=== PATIENT | female | born 1945 | race Caucasian/White ===

== ENCOUNTER → 2017-12-03 | Outpatient (CLI) | payer MEDICARE, OTHER ==
[~2017-12-03] MED LIST: ALLO100 PO; AMLO5 PO; ASPI325 PO; ASPI81CH PO; ASPI81EC PO; ATOR10 PO; BIEST; BIOTIN-D1 GM PO; BUDE.25 PO; BUDESONIDE PO; BUME2 PO; CEPH500 PO; CETI10 PO; CETI5 PO; CILO100 PO; CLON2 PO; COLC.6 PO; CYCL10 PO; Cyclobenzaprine5 MG PO; DIALYVITE WITH1 EACH PO; DOCU100 PO; ERGO400 PO; ERGO50000 PO; FEXO180 PO; FOL2.2T PO; FURO40 PO; Fabb Tablet1 EACH PO; Fergon240 M1 PO; GABA300 PO; HYDACE5 PO; Hydrocodone-Ap1 EA23 PO; METO2.5 PO; METO5A PO; METPRE4DP PO; Midodrine HCl2.5 MG PO; Neurontin300 MG PO; ONDA4ODT; ONDA4ODT PO; OXYACE5T PO; OXYC10TA19 PO; OXYC1TAB11 PO; Omeprazole20 M1 PO; POTBIC25 PO; POTCHL10ER; POTCHL10ER PO; PRED20 PO; Percocet 5-3251 EACH PO; ROPI.25 PO; RXCYCL10 PO; RXHYDACE PO; SODBIC650 PO; SODIUM BICARB; SPIR25 PO; SPIR50 PO; VALS80 PO; Vitamin D2000 UNIT PO; ZINC15 PO
== END | disposition home or self-care (01) ==
LOC: PLD 13:28 → LAB SHORT 13:28
DX: D22.62 Melanocytic nevi of left upper limb, including shoulder (principal)
CPT/HCPCS: 88305

== ENCOUNTER 2017-12-06 12:43 | Emergency (ER) | payer MEDICARE, OTHER ==
[~2017-12-06] VITALS: Ht 170.2 cm; Wt 106.0 kg
[~2017-12-06 12:43] MED LIST changes: -ASPI325 PO; -BIOTIN-D1 GM PO; -BUDE.25 PO; -BUDESONIDE PO; -CILO100 PO; -CLON2 PO; -DIALYVITE WITH1 EACH PO; -DOCU100 PO; -Fergon240 M1 PO; -GABA300 PO; -METO5A PO; -Midodrine HCl2.5 MG PO; -Neurontin300 MG PO; -ONDA4ODT; -ONDA4ODT PO; -OXYC10TA19 PO; -OXYC1TAB11 PO; -Omeprazole20 M1 PO; -POTCHL10ER; -ROPI.25 PO; -Vitamin D2000 UNIT PO; -ZINC15 PO
[2017-12-06 13:24] LABS: BASOPHILS ABSOLUTE AUTO 0.03 K/mm3 (0.00-0.23); BASOPHILS PERCENT AUTO 0 % (0-2); EOSINOPHILS PERCENT AUTO 1 % (0-6); Hematocrit 34.3 % (33.0-51.0); Hemoglobin 10.7 g/dL (11.5-16.0); IMMATURE GRAN ABSOLUTE AUTO 0.04 K/mm3 (0.00-0.10); IMMATURE GRAN PERCENT AUTO 0 % (0-1); LYMPHOCYTES ABSOLUTE AUTO 2.66 K/mm3 (0.84-5.20); LYMPHOCYTES PERCENT AUTO 27 % (21-46); MONOCYTES ABSOLUTE AUTO 0.64 K/mm3 (0.16-1.47); MONOCYTES PERCENT AUTO 6 % (4-13); Mean Corpuscular HGB 32.9 pg (26.0-34.0); Mean Corpuscular HGB Conc 31.2 g/dL (31.5-36.5); Mean Corpuscular Volume 106 fL (80-100); Mean Platelet Volume 9.9 fL (9.1-12.4); NEUTROPHILS ABSOLUTE AUTO 6.54 K/mm3 (1.96-9.15); NEUTROPHILS PERCENT AUTO 65 % (41-73); Platelet Count 266 K/mm3 (150-400); RDW Standard Deviation 62.4 fL (35.1-46.3); Red Blood Cell Count 3.25 M/mm3 (3.80-5.20); White Blood Cell Count 10.01 K/mm3 (4.00-11.30)
[2017-12-06 13:56] LABS: Albumin, Blood 3.1 g/dL (3.4-5.0); Albumin/Globulin Ratio 0.8 (0.8-1.8); Bilirubin, Total 0.4 mg/dL (0.1-1.0); Bun/Creatinine Ratio 26.8 (12.0-20.0); Calcium, Blood 9.2 mg/dL (8.5-10.1); Creatinine, Blood 1.53 mg/dL (0.40-1.00); Globulin, Blood 3.8 g/dL (2.2-4.0); Potassium, Blood 3.5 mmol/L (3.5-5.5); Total Protein, Blood 6.9 g/dL (6.4-8.2); Troponin I 0.015 ng/mL (0.000-0.040)
[2017-12-06] MEDS ORDERED: BUDE.25 PO (13:58)
[2017-12-06] MEDS ORDERED: POTCHL10ER (13:58)
[2017-12-06] MEDS ORDERED: CILO100 PO (13:58)
[2017-12-06] MEDS ORDERED: Fergon240 M1 PO (13:58)
[2017-12-06] MEDS ORDERED: ONDA4ODT (13:59)
[2017-12-06] MEDS ORDERED: CLON2 PO (13:59)
[2017-12-06] MEDS ORDERED: Omeprazole20 M1 PO (13:59)
[2017-12-06] MEDS ORDERED: GABA300 PO (13:59)
[2017-12-06] MEDS ORDERED: ROPI.25 PO (13:59)
[2018-05-14] MEDS ORDERED: BIOTIN-D1 GM PO (07:21)
[2018-05-14] MEDS ORDERED: METO5A PO (07:22)
[2018-05-14] MEDS ORDERED: BUME2 PO (07:23)
[2018-05-14] MEDS ORDERED: OXYC1TAB11 PO (07:23)
[2018-05-14] MEDS ORDERED: Midodrine HCl2.5 MG PO (07:24)
[2018-05-14] MEDS ORDERED: ZINC15 PO (07:24)
[2018-05-14] MEDS ORDERED: Vitamin D2000 UNIT PO (07:24)
[2018-05-14] MEDS ORDERED: DIALYVITE WITH1 EACH PO (07:25)
[2018-05-14] MEDS ORDERED: ONDA4ODT PO (07:25)
== END 2017-12-06 14:55 | disposition home or self-care (01) ==
LOC: ER 12:43
PROVIDERS: Internal Medicine
DX: R06.00 Dyspnea, unspecified (principal); I50.9 Heart failure, unspecified; F17.200 Nicotine dependence, unspecified, uncomplicated; Z88.1 Allergy status to other antibiotic agents; Z79.899 Other long term (current) drug therapy; Z79.82 Long term (current) use of aspirin
CPT/HCPCS: 36415; 71046; 80053; 83880; 84484; 85025; 93005; 93010; 99284

== ENCOUNTER → 2017-12-10 | Outpatient (CLI) | payer MEDICARE, OTHER ==
[~2017-12-10] MED LIST changes: +ASPI325 PO; +BIOTIN-D1 GM PO; +BUDE.25 PO; +BUDESONIDE PO; +CILO100 PO; +CLON2 PO; +DIALYVITE WITH1 EACH PO; +DOCU100 PO; +Fergon240 M1 PO; +GABA300 PO; +METO5A PO; +Midodrine HCl2.5 MG PO; +Neurontin300 MG PO; +ONDA4ODT; +ONDA4ODT PO; +OXYC10TA19 PO; +OXYC1TAB11 PO; +Omeprazole20 M1 PO; +POTCHL10ER; +ROPI.25 PO; +Vitamin D2000 UNIT PO; +ZINC15 PO
== END | disposition home or self-care (01) ==
LOC: PLD 10:38 → LAB SHORT 10:38
DX: D48.5 Neoplasm of uncertain behavior of skin (principal)
CPT/HCPCS: 88305

== ENCOUNTER → 2018-01-06 | Outpatient (CLI) | payer MEDICARE, OTHER ==
[~2018-01-06] MED LIST changes: -ASPI325 PO; -ASPI81CH PO; -BIOTIN-D1 GM PO; +BUDE.25; -BUDE.25 PO; -BUDESONIDE PO; -CETI5 PO; +CILO100; -CILO100 PO; +CLON2; -CLON2 PO; -DIALYVITE WITH1 EACH PO; -DOCU100 PO; -Fabb Tablet1 EACH PO; +Fergon240 M1; -Fergon240 M1 PO; +GABA300; -GABA300 PO; -METO5A PO; -Midodrine HCl2.5 MG PO; -Neurontin300 MG PO; -ONDA4ODT PO; -OXYC10TA19 PO; -OXYC1TAB11 PO; +Omeprazole20 M1; -Omeprazole20 M1 PO; +ROPI.25; -ROPI.25 PO; -Vitamin D2000 UNIT PO; -ZINC15 PO; +[UNRECOGNIZED DRUG - OTHER] PO
[2018-01-06 18:27] LABS: Albumin, Blood 3.4 g/dL (3.4-5.0); Anion Gap 7 mmol/L (6-16); Blood Urea Nitrogen 69 mg/dL (8-24); Bun/Creatinine Ratio 23.1 (12.0-20.0); CO2, Blood 37 mmol/L (21-32); Calcium, Blood 9.4 mg/dL (8.5-10.1); Chloride, Blood 83 mmol/L (98-108); Creatinine, Blood 2.99 mg/dL (0.40-1.00); Glomerular Filtration Rate 16 (60-); Glucose, Blood 111 mg/dL (70-99); Phosphorus, Blood 4.2 mg/dL (2.5-4.9); Potassium, Blood 2.6 mmol/L (3.5-5.5); Sodium, Blood 127 mmol/L (136-145)
== END | disposition home or self-care (01) ==
LOC: LAB 16:00 → LAB SHORT 16:00
PROVIDERS: Internal Medicine Nephrology
DX: N18.3 Chronic kidney disease, stage 3 (moderate) (principal); D63.1 Anemia in chronic kidney disease
CPT/HCPCS: 80069; 85018

== ENCOUNTER 2018-05-22 11:35 | Inpatient (IN) | payer MEDICARE, OTHER ==
[~2018-05-22] VITALS: Ht 170.2 cm; Wt 89.8 kg
[~2018-05-22 11:35] MED LIST changes: +ASPI81CH PO; +BIOTIN-D1 GM PO; -BUDE.25; +BUDE.25 PO; +CETI5 PO; -CILO100; +CILO100 PO; -CLON2; +CLON2 PO; +DIALYVITE WITH1 EACH PO; +Fabb Tablet1 EACH PO; -Fergon240 M1; +Fergon240 M1 PO; -GABA300; +GABA300 PO; +METO5A PO; +Midodrine HCl2.5 MG PO; +ONDA4ODT PO; +OXYC1TAB11 PO; -Omeprazole20 M1; +Omeprazole20 M1 PO; -ROPI.25; +ROPI.25 PO; +Vitamin D2000 UNIT PO; +ZINC15 PO; -[UNRECOGNIZED DRUG - OTHER] PO
[2018-05-27] MEDS ORDERED: BUDESONIDE PO (12:50)
[2018-05-27] MEDS ORDERED: Neurontin300 MG PO (12:55)
[2018-05-28 08:12] LABS: BASOPHILS ABSOLUTE AUTO 0.01 K/mm3 (0.00-0.23); BASOPHILS PERCENT AUTO 0 % (0-2); EOSINOPHILS PERCENT AUTO 0 % (0-6); Hematocrit 27.4 % (33.0-51.0); Hemoglobin 8.9 g/dL (11.5-16.0); IMMATURE GRAN ABSOLUTE AUTO 0.03 K/mm3 (0.00-0.10); IMMATURE GRAN PERCENT AUTO 0 % (0-1); LYMPHOCYTES PERCENT AUTO 18 % (21-46); MONOCYTES ABSOLUTE AUTO 0.28 K/mm3 (0.16-1.47); MONOCYTES PERCENT AUTO 3 % (4-13); Mean Corpuscular HGB 31.6 pg (26.0-34.0); Mean Corpuscular HGB Conc 32.5 g/dL (31.5-36.5); Mean Corpuscular Volume 97 fL (80-100); NEUTROPHILS ABSOLUTE AUTO 6.68 K/mm3 (1.96-9.15); NEUTROPHILS PERCENT AUTO 79 % (41-73); Platelet Count 336 K/mm3 (150-400); RDW Coefficient Variation 14.9 % (11.7-14.2); RDW Standard Deviation 53.1 fL (35.1-46.3); Red Blood Cell Count 2.82 M/mm3 (3.80-5.20)
[2018-05-28 08:32] LABS: Albumin, Blood 2.8 g/dL (3.4-5.0); Anion Gap 12 mmol/L (6-16); Blood Urea Nitrogen 29 mg/dL (8-24); Bun/Creatinine Ratio 9.1 (12.0-20.0); CO2, Blood 25 mmol/L (21-32); Calcium, Blood 9.1 mg/dL (8.5-10.1); Chloride, Blood 97 mmol/L (98-108); Creatinine, Blood 3.17 mg/dL (0.40-1.00); Glomerular Filtration Rate 15 (60-); Glucose, Blood 130 mg/dL (70-99); Magnesium, Blood 1.7 mg/dL (1.6-2.4); Phosphorus, Blood 3.8 mg/dL (2.5-4.9); Potassium, Blood 4.1 mmol/L (3.5-5.5); Sodium, Blood 134 mmol/L (136-145)
[2018-05-29] MEDS ORDERED: ASPI325 PO (07:28)
[2018-05-29 07:40] LABS: Hematocrit 25.9 % (33.0-51.0); Hemoglobin 8.6 g/dL (11.5-16.0)
[2018-05-29 07:49] LABS: Albumin, Blood 2.7 g/dL (3.4-5.0); Anion Gap 9 mmol/L (6-16); Blood Urea Nitrogen 33 mg/dL (8-24); Bun/Creatinine Ratio 11.3 (12.0-20.0); CO2, Blood 27 mmol/L (21-32); Calcium, Blood 8.6 mg/dL (8.5-10.1); Chloride, Blood 92 mmol/L (98-108); Creatinine, Blood 2.91 mg/dL (0.40-1.00); Glomerular Filtration Rate 17 (60-); Glucose, Blood 82 mg/dL (70-99); Magnesium, Blood 1.6 mg/dL (1.6-2.4); Phosphorus, Blood 2.7 mg/dL (2.5-4.9); Potassium, Blood 3.6 mmol/L (3.5-5.5); Sodium, Blood 128 mmol/L (136-145)
[2018-05-29] MEDS ORDERED: OXYC10TA19 PO (10:56)
[2018-05-29] MEDS ORDERED: DOCU100 PO (10:57)
== END 2018-05-29 15:42 | disposition home or self-care (01) | DRG 469 ==
LOC: SURS 05-27 11:42 → PRE IP 05-27 13:30 → SURS 05-27 18:42
PROVIDERS: Internal Medicine Nephrology; Orthopaedic Surgery
PROC: 8E0YXBZ Computer Assisted Procedure of Lower Extremity (ICD-10-PCS; 2018-05-27)
PROC: 0SR90JA Replacement of Right Hip Joint with Synthetic Substitute, Uncemented, Open Approach (ICD-10-PCS; principal; 2018-05-27 13:30)
DX: M16.11 Unilateral primary osteoarthritis, right hip (principal); N18.6 End stage renal disease; M87.9 Osteonecrosis, unspecified; I13.2 Hypertensive heart and chronic kidney disease with heart failure and with stage 5 chronic kidney disease, or end stage renal disease; E87.1 Hypo-osmolality and hyponatremia; D63.1 Anemia in chronic kidney disease; G47.33 Obstructive sleep apnea (adult) (pediatric); I50.9 Heart failure, unspecified; M10.9 Gout, unspecified; E78.00 Pure hypercholesterolemia, unspecified; Z99.2 Dependence on renal dialysis; Z88.6 Allergy status to analgesic agent; Z88.4 Allergy status to anesthetic agent; Z88.1 Allergy status to other antibiotic agents; Z79.82 Long term (current) use of aspirin; Z79.899 Other long term (current) drug therapy; Z87.891 Personal history of nicotine dependence
CPT/HCPCS: 36415; 72170; 80048; 80069; 83735; 84132; 85014; 85018; 85025; 86850; 86900; 86901; 94762; 97110; 97116; 97161; 97530; C1713; C1776; G8978; G8979; G8980; J0171; J0690; J0735; J1100; J2250; J2370; J2405; J2710; J2765; J2795; J3010; J7030

== ENCOUNTER 2018-12-10 11:04 | Emergency (ER) | payer MEDICARE, OTHER ==
[~2018-12-10] VITALS: Ht 167.6 cm; Wt 97.5 kg
[~2018-12-10 11:04] MED LIST changes: +ASPI325 PO; +BUDESONIDE PO; +DOCU100 PO; +Neurontin300 MG PO; +OXYC10TA19 PO
[2018-12-10 11:55] LABS: BASOPHILS ABSOLUTE AUTO 0.04 K/mm3 (0.00-0.23); BASOPHILS PERCENT AUTO 0 % (0-2); EOSINOPHILS ABSOLUTE AUTO 0.12 K/mm3 (0.00-0.68); EOSINOPHILS PERCENT AUTO 1 % (0-6); Hematocrit 36.6 % (33.0-51.0); Hemoglobin 11.8 g/dL (11.5-16.0); IMMATURE GRAN ABSOLUTE AUTO 0.04 K/mm3 (0.00-0.10); IMMATURE GRAN PERCENT AUTO 0 % (0-1); LYMPHOCYTES ABSOLUTE AUTO 2.49 K/mm3 (0.84-5.20); LYMPHOCYTES PERCENT AUTO 21 % (21-46); MONOCYTES ABSOLUTE AUTO 0.51 K/mm3 (0.16-1.47); MONOCYTES PERCENT AUTO 4 % (4-13); Mean Corpuscular HGB 31.9 pg (26.0-34.0); Mean Corpuscular HGB Conc 32.2 g/dL (31.5-36.5); Mean Corpuscular Volume 99 fL (80-100); Mean Platelet Volume 10.1 fL (9.1-12.4); NEUTROPHILS ABSOLUTE AUTO 8.83 K/mm3 (1.96-9.15); NEUTROPHILS PERCENT AUTO 74 % (41-73); Platelet Count 263 K/mm3 (150-400); RDW Standard Deviation 50.4 fL (35.1-46.3); White Blood Cell Count 12.03 K/mm3 (4.00-11.30)
[2018-12-10 12:05] LABS: Source, Urine Clean Catch
[2018-12-10 12:07] LABS: Bilirubin, Urine Neg (Neg); Blood, Urine 1+ (Neg); Glucose Qualitative, Urine Neg (Neg); Ketones, Urine Neg (Neg); Leukocyte Esterase, Urine 3+ (Neg); Nitrite, Urine Pos (Neg); Protein, Urine 3+ (Neg); Specific Gravity, Urine 1.015 (1.003-1.022); Urobilinogen, Urine NORM (Normal)
[2018-12-10 12:25] LABS: Appearance, Urine Hazy (Clear); Bacteria Mod /hpf; Color, Urine Yellow (P-Yellow); Red Blood Cells, Urine 0-2 /hpf (0-2); Squamous Epithelial Cells Few /hpf (Few); White Blood Cells, Urine 25-50 /hpf (0-5)
[2018-12-10 12:26] LABS: Albumin, Blood 3.3 g/dL (3.4-5.0); Albumin/Globulin Ratio 0.8 (0.8-1.8); Bilirubin, Total 0.4 mg/dL (0.1-1.0); Bun/Creatinine Ratio 26.5 (12.0-20.0); Calcium, Blood 9.8 mg/dL (8.5-10.1); Creatinine, Blood 1.66 mg/dL (0.40-1.00); Potassium, Blood 4.1 mmol/L (3.5-5.5); Total Protein, Blood 7.3 g/dL (6.4-8.2); Troponin I 0.037 ng/mL (0.000-0.040)
[2018-12-10] MEDS ORDERED: ASPI81CH PO (14:01)
[2018-12-10] MEDS ORDERED: CLON.1 PO (14:04)
[2018-12-10] MEDS ORDERED: IRBE75 PO (14:04)
[2018-12-10] MEDS ORDERED: ONDA4ODT MM (16:56)
[2018-12-10] MEDS ORDERED: CEFD300 PO (16:56)
== END 2018-12-10 17:05 | disposition home or self-care (01) ==
LOC: ER 11:04
PROVIDERS: Physician Assistant
DX: N12 Tubulo-interstitial nephritis, not specified as acute or chronic (principal); I73.9 Peripheral vascular disease, unspecified; Z88.1 Allergy status to other antibiotic agents; Z88.6 Allergy status to analgesic agent; Z79.82 Long term (current) use of aspirin; Z79.899 Other long term (current) drug therapy
CPT/HCPCS: 36415; 80053; 81001; 83605; 83880; 84484; 85025; 87077; 87086; 87186; 93005; 93010; 96365; 99284-25; J0696; J7030; J7120

== ENCOUNTER 2019-03-12 14:04 | Day surgery (SDC) | payer MEDICARE, OTHER ==
[~2019-03-12] VITALS: Ht 165.1 cm; Wt 109.5 kg
[~2019-03-12 14:04] MED LIST changes: +CEFD300 PO; +CLON.1 PO; +IRBE75 PO; +ONDA4ODT MM
--- NOTE | 2019-03-12 16:05 | NUR ---
03/12/19 1605 Lyla Ortiz 7CC OF 2% XYLOCAINE 1:200,000 MIXED BY RN USED FOR INJECTION
== END 2019-03-12 17:35 | disposition home or self-care (01) ==
LOC: ORSCSDS 14:04
PROVIDERS: Ophthalmology
PROC: 080NXZZ Alteration of Right Upper Eyelid, External Approach (ICD-10-PCS; principal; 2019-03-12 16:00)
PROC: 080PXZZ Alteration of Left Upper Eyelid, External Approach (ICD-10-PCS; principal; 2019-03-12 16:00)
DX: H02.834 Dermatochalasis of left upper eyelid (principal); H02.831 Dermatochalasis of right upper eyelid; I12.9 Hypertensive chronic kidney disease with stage 1 through stage 4 chronic kidney disease, or unspecified chronic kidney disease; N18.9 Chronic kidney disease, unspecified; I50.9 Heart failure, unspecified; G47.33 Obstructive sleep apnea (adult) (pediatric); F17.210 Nicotine dependence, cigarettes, uncomplicated; K21.9 Gastro-esophageal reflux disease without esophagitis; Z79.899 Other long term (current) drug therapy; Z79.82 Long term (current) use of aspirin; E66.01 Morbid (severe) obesity due to excess calories; Z68.39 Body mass index [BMI] 39.0-39.9, adult
CPT/HCPCS: J0171; J2704; J7030; J7120

== ENCOUNTER → 2019-04-29 | Outpatient (CLI) | payer MEDICARE, OTHER ==
[2019-04-29 17:54] LABS: Bilirubin, Urine Neg (Neg); Blood, Urine 1+ (Neg); Glucose Qualitative, Urine Neg (Neg); Ketones, Urine Neg (Neg); Leukocyte Esterase, Urine 3+ (Neg); Nitrite, Urine Neg (Neg); Protein, Urine 2+ (Neg); Urobilinogen, Urine NORM (Normal)
[2019-04-29 18:01] LABS: Appearance, Urine Hazy (Clear); Color, Urine Yellow (P-Yellow)
[2019-04-29 18:03] LABS: White Blood Cells, Urine TNTC /hpf (0-5)
[2019-04-29 18:04] LABS: Bacteria Mod /hpf; Squamous Epithelial Cells Few /hpf (Few)
== END | disposition home or self-care (01) ==
LOC: LAB 17:45 → LAB SHORT 17:45
PROVIDERS: Registered Nurse
DX: N39.0 Urinary tract infection, site not specified (principal); R82.998 Other abnormal findings in urine
CPT/HCPCS: 81001; 87077; 87086; 87186

== ENCOUNTER → 2019-07-09 | Outpatient (CLI) | payer MEDICARE, OTHER ==
[2019-07-09 12:44] LABS: Albumin, Blood 2.9 g/dL (3.4-5.0); Anion Gap 9 mmol/L (6-16); Blood Urea Nitrogen 33 mg/dL (8-24); Bun/Creatinine Ratio 18.2 (12.0-20.0); CO2, Blood 23 mmol/L (21-32); Chloride, Blood 96 mmol/L (98-108); Creatinine, Blood 1.81 mg/dL (0.40-1.00); Glomerular Filtration Rate 29 (60-); Glucose, Blood 92 mg/dL (70-99); Phosphorus, Blood 3.6 mg/dL (2.5-4.9); Potassium, Blood 4.3 mmol/L (3.5-5.5); Sodium, Blood 128 mmol/L (136-145)
== END | disposition home or self-care (01) ==
LOC: LAB 11:50 → LAB SHORT 11:50 → EDSTATUS 13:53
PROVIDERS: Internal Medicine Nephrology
DX: N18.3 Chronic kidney disease, stage 3 (moderate) (principal); D63.1 Anemia in chronic kidney disease
CPT/HCPCS: 80069; 85018

== ENCOUNTER 2020-10-21 10:27 | Inpatient (IN) | payer MEDICARE, OTHER ==
[~2020-10-21] VITALS: Ht 167.6 cm; Wt 99.5 kg
[~2020-10-21 10:27] MED LIST changes: +ABAT250V; +B-COMPLEX WITH1 EACH PO; +CALCIUM 600 +1 EA11 PO; -CILO100 PO; -CLON.1 PO; +Folic Acid-Vit1 EACH PO; +OMEP20ER PO; -Omeprazole20 M1 PO; +POTA10T PO; -ROPI.25 PO; -SPIR50 PO; +Ventolin/Prove6.7 GM INH
[2020-10-21 11:09] LABS: International Normalized Ratio 0.91; Prothrombin Time Results 9.8 Sec (9.7-11.5)
[2020-10-21 11:16] LABS: Alanine Aminotransfer (ALT/SGP 29 U/L (12-78); Albumin, Blood 3.4 g/dL (3.4-5.0); Albumin/Globulin Ratio 0.8 (0.8-1.8); Alk Phos 123 U/L (50-136); Anion Gap 8 mmol/L (6-16); Aspartate Aminotrans (AST/SGOT 17 U/L (12-37); Bilirubin, Total 0.3 mg/dL (0.1-1.0); Blood Urea Nitrogen 25 mg/dL (8-24); CO2, Blood 32 mmol/L (21-32); Calcium, Blood 8.9 mg/dL (8.5-10.1); Chloride, Blood 98 mmol/L (98-108); Creatinine, Blood 1.67 mg/dL (0.40-1.00); Globulin, Blood 4.1 g/dL (2.2-4.0); Glomerular Filtration Rate 32 (60-); Glucose, Blood 85 mg/dL (70-99); Potassium, Blood 3.5 mmol/L (3.5-5.5); Sodium, Blood 138 mmol/L (136-145); Total Protein, Blood 7.5 g/dL (6.4-8.2); Troponin I <0.015 ng/mL (0.000-0.040)
[2020-10-21 11:18] LABS: BASOPHILS ABSOLUTE AUTO 0.04 K/mm3 (0.00-0.23); BASOPHILS PERCENT AUTO 0 % (0-2); EOSINOPHILS ABSOLUTE AUTO 0.05 K/mm3 (0.00-0.68); EOSINOPHILS PERCENT AUTO 0 % (0-6); Hematocrit 37.9 % (33.0-51.0); Hemoglobin 12.4 g/dL (11.5-16.0); IMMATURE GRAN ABSOLUTE AUTO 0.19 K/mm3 (0.00-0.10); IMMATURE GRAN PERCENT AUTO 1 % (0-1); LYMPHOCYTES PERCENT AUTO 23 % (21-46); MONOCYTES ABSOLUTE AUTO 0.84 K/mm3 (0.16-1.47); MONOCYTES PERCENT AUTO 5 % (4-13); Mean Corpuscular HGB 31.9 pg (26.0-34.0); Mean Corpuscular HGB Conc 32.7 g/dL (31.5-36.5); Mean Corpuscular Volume 97 fL (80-100); Mean Platelet Volume 10.1 fL (9.1-12.4); NEUTROPHILS ABSOLUTE AUTO 11.23 K/mm3 (1.96-9.15); NEUTROPHILS PERCENT AUTO 70 % (41-73); Platelet Count 361 K/mm3 (150-400); RDW Coefficient Variation 14.3 % (11.7-14.2); RDW Standard Deviation 49.5 fL (35.1-46.3); Red Blood Cell Count 3.89 M/mm3 (3.80-5.20); White Blood Cell Count 15.95 K/mm3 (4.00-11.30)
[2020-10-21] MEDS ORDERED: CILO100 PO (12:39)
[2020-10-21] MEDS ORDERED: BUPR150ER PO (12:39)
[2020-10-21] MEDS ORDERED: ATOR10 PO (12:40)
[2020-10-21] MEDS ORDERED: CLON.5 PO (12:41)
[2020-10-21] MEDS ORDERED: SPIR25 PO (12:41)
[2020-10-21] MEDS ORDERED: ROPI.25 PO (12:42)
[2020-10-21] MEDS ORDERED: ALLO100 PO (12:42)
[2020-10-21] MEDS ORDERED: MIDO5 PO (12:43)
[2020-10-21] MEDS ORDERED: PANTOPRAZOLE SO40 M2 PO (12:44)
[2020-10-21] MEDS ORDERED: Aspir 8181 MG PO (12:59)
[2020-10-21] MEDS ORDERED: CLON.1 PO (13:21)
[2020-10-21] MEDS ORDERED: Isosorbide Mono60 MG PO (13:22)
[2020-10-21] MEDS ORDERED: LOSA50 PO (13:23)
[2020-10-21] MEDS ORDERED: VITAMIN D325 MC3 PO (13:24)
[2020-10-21] MEDS ORDERED: ATEN25 PO (13:24)
[2020-10-21] MEDS ORDERED: PROMETHAZINE12.5 M2 PO (13:27)
[2020-10-21] MEDS ORDERED: BUME2 PO (13:31)
[2020-10-21] MEDS ORDERED: BUDESONIDE EC3 M1 PO (13:32)
[2020-10-21] MEDS ORDERED: HYDHCL25 PO (13:35)
--- NOTE | 2020-10-21 15:27 | NUR ---
Echocardiogram completed.
--- NOTE | 2020-10-21 18:45 | NUR ---
SHIFT SUMMARY/ADMIT NOTE THIS NURSE NOTIFIED OF NEW ADMIT TO ROOM AT 1325 AT WHICH POINT, ROOM WAS STILL BEING CLEANED. ROOM CLEAN AT 1411. REPORT RECEIVED FROM RADHA [id number]. PT ARRIVED TO ROOM VIA GURNEY AT 1535. PT AXO, PLEASANT AND COOPERATIVE WITH CARE. NURSE COMPLETED ADMISSION HISTORY AND THEN NOTED MEDICATIONS DUE PER EMAR. 1300 DOSE OF METOPROLOL, "FIRST DOSE NOW" STILL TO BE GIVEN. THIS NURSE CALLED DR SALES WHO CONFIRMED THAT IT WAS OKAY TO GIVE THIS DOSE GIVEN HOW LATE IT WOULD BE. SEE MAR. VS MEASURED PRIOR TO GIVING MEDICATION. WILLI MARIANO CALLED THIS NURSE TO INQUIRE WHY THE DOSE HADNT BEEN GIVEN WHICH SHOULD HAVE BEEN GIVEN IN THE ER. THIS NURSE EXPLAINED THE ABOVE STATEMENT TO WHICH WILLI MARIANO STATED TO PROCEED AND GIVE THE MED. PT RUNNING SINUS TACH AT 108 PER DESKTOP ADMINISTRATOR. PT REFUSED BUMEX PER EMAR STATING THAT SHE "DIDNT NEED IT, HAD DIALYSIS THIS SHIFT." BED IN LOW POSITION, CALL LIGHT WITHIN REACH.
--- NOTE | 2020-10-21 19:05 | NUR ---
ASSUMED CARE RECEIVED REPORT FROM SANDRA FERRO. PT RESTING IN CHAIR, NO ACUTE DISTRESS NOTED AT THIS TIME. DENIES NEEDS. CALL LIGHT, POSSESSIONS IN REACH, CONTINUE TO MONITOR.
--- NOTE | 2020-10-21 23:25 | NUR ---
SPOKE TO WILLI JACOBS REGARDING PT'S HOME DOSE OF ATORVASTATIN. NO CHANGES MADE AT THIS TIME. CONTINUE TO MONITOR.
--- NOTE | 2020-10-22 05:54 | NUR ---
SHIFT SUMMARY PT ASLEEP, NO ACUTE DISTRESS OR NEEDS ASSESSED. VS REVIEWED, WNL. PT HAS BEEN RUNNING SINUS TACH, 90'S-100'S PER PCU LINING PRINTER. NO C/O DIZZINESS, CP. WORE CPAP T/O NIGHT. CALL LIGHT, POSSESSIONS IN REACH, BED IN LOW POSITION, SIDERAILS UP X3. CONTINUE TO MONITOR, REPORT OFF TO DAY RN.
[2020-10-22 05:59] LABS: Bun/Creatinine Ratio 15.9 (12.0-20.0); Calcium, Blood 9.7 mg/dL (8.5-10.1); Creatinine, Blood 2.51 mg/dL (0.40-1.00); Magnesium, Blood 2.2 mg/dL (1.6-2.4); Potassium, Blood 3.8 mmol/L (3.5-5.5)
--- NOTE | 2020-10-22 19:05 | NUR ---
ASSUMED CARE RECEIVED REPORT FROM SANDRA PATTERSON. PT UP IN CHAIR, NO ACUTE DISTRESS. DENIES NEEDS AT THIS TIME. DISCUSSED PLAN OF CARE R/T INCREASE IN METOPROLOL DOSE, PT INDICATED UNDERSTANDING. CALL LIGHT, POSSESSIONS IN REACH, BED IN LOW POSITION. CONTINUE TO MONITOR.
--- NOTE | 2020-10-23 04:06 | NUR ---
SHIFT SUMMARY PT ASLEEP, IN NO ACUTE DISTRESS. NO ACUTE CHANGES IN CONDITION T/O NIGHT. RECEIVED 75MG METOPROLOL ORDERED, HR TRENDING IN THE MID 90'S PER TOOL MACHINE SETUP OPERATOR. NO CARDIAC EVENTS REPORTED. NO EPISODES OF SYNCOPE OR C/O DIZZINESS. PROVIDED PT WITH TEACHING HANDOUTS R/T DISEASE PROCESS AND MEDICATIONS. NO ACUTE NEEDS ASSESSED AT THIS TIME, CPAP IN PLACE, RESPS E/U. PT REFUSING CONTINUOS PULSE OX. CALL LIGHT AND POSSESSIONS IN REACH, CONTINUE TO MONITOR UNTIL REPORT GIVEN TO DAY RN.
[2020-10-23] MEDS ORDERED: ELIQUIS5 MG PO (10:32)
[2020-10-23] MEDS ORDERED: METO100 PO (10:32)
--- NOTE | 2020-10-23 11:10 | NUR ---
DISCHARGED HOME. ALL QUESTIONS ANSWERED. VERBALIZED UNDERSTANDING OF DISCHARGE SUMMARY AND INSTRUCTIONS. ALL BELONGINGS IN PATIENT POSSESSION.
== END 2020-10-23 11:13 | disposition home or self-care (01) | DRG 308 ==
LOC: ER 10:27 → MEDS 10:28
PROVIDERS: Emergency Medicine; Nurse Practitioner Acute Care; ADMIT Internal Medicine
PROC: 5A09357 Assistance with Respiratory Ventilation, Less than 24 Consecutive Hours, Continuous Positive Airway Pressure (ICD-10-PCS; principal; 2020-10-21)
DX: I48.91 Unspecified atrial fibrillation (principal); N18.6 End stage renal disease; I13.2 Hypertensive heart and chronic kidney disease with heart failure and with stage 5 chronic kidney disease, or end stage renal disease; I50.32 Chronic diastolic (congestive) heart failure; M54.9 Dorsalgia, unspecified; G89.29 Other chronic pain; G47.33 Obstructive sleep apnea (adult) (pediatric); F32.9 Major depressive disorder, single episode, unspecified; F41.9 Anxiety disorder, unspecified; I73.9 Peripheral vascular disease, unspecified; R73.03 Prediabetes; E78.5 Hyperlipidemia, unspecified; M10.9 Gout, unspecified; E66.01 Morbid (severe) obesity due to excess calories; D72.829 Elevated white blood cell count, unspecified; Z99.2 Dependence on renal dialysis; Z87.891 Personal history of nicotine dependence; Z68.35 Body mass index [BMI] 35.0-35.9, adult; Z88.1 Allergy status to other antibiotic agents; Z88.8 Allergy status to other drugs, medicaments and biological substances; Z79.899 Other long term (current) drug therapy; Z79.891 Long term (current) use of opiate analgesic
CPT/HCPCS: 36415; 71045; 80048; 80053; 83735; 84100; 84443; 84484; 85025; 85610; 93005; 93010; 93306; 94762; 96374; 99285-25; A9270; G0378

== ENCOUNTER 2022-06-01 10:40 | Emergency (ER) | payer MEDICARE, OTHER ==
[~2022-06-01] VITALS: Ht 167.6 cm; Wt 90.3 kg
[~2022-06-01 10:40] MED LIST changes: +ATEN25 PO; +Aspir 8181 MG PO; +BUDESONIDE EC3 M1 PO; +BUPR150ER PO; +CILO100 PO; +CLON.1 PO; +CLON.5 PO; +ELIQUIS5 MG PO; +HYDHCL25 PO; +Isosorbide Mono60 MG PO; +LOSA50 PO; +METO100 PO; +MIDO5 PO; +PANTOPRAZOLE SO40 M2 PO; +PROMETHAZINE12.5 M2 PO; +ROPI.25 PO; +VITAMIN D325 MC3 PO
[2022-06-01] MEDS ORDERED: Amoxicillin500 MG PO (11:38)
[2022-06-01] MEDS ORDERED: METO25ER PO (11:39)
[2022-06-01] MEDS ORDERED: ONDA4 PO (11:40)
[2022-06-01] MEDS ORDERED: OXYC5 PO ×2 (11:43→16:14)
[2022-06-01] MEDS ORDERED: SENNA LAXATIVE8.6 MG PO (11:44)
[2022-06-01] MEDS ORDERED: CLON.5 PO (11:47)
[2022-06-01] MEDS ORDERED: TEMA30 PO (11:48)
[2022-06-01 13:20] LABS: Influenza A, PCR NEGATIVE (NEGATIVE); Influenza B, PCR NEGATIVE (NEGATIVE); Resp Syncytial Virus, PCR NEGATIVE (NEGATIVE); SARS-Cov-2 (COVID-19) PCR, MMC NEGATIVE (NEGATIVE)
[2022-06-01 14:50] LABS: BASOPHILS ABSOLUTE AUTO 0.05 K/mm3 (0.00-0.23); BASOPHILS PERCENT AUTO 0 % (0-2); EOSINOPHILS ABSOLUTE AUTO 0.08 K/mm3 (0.00-0.68); EOSINOPHILS PERCENT AUTO 1 % (0-6); Hematocrit 24.7 % (33.0-51.0); IMMATURE GRAN ABSOLUTE AUTO 0.11 K/mm3 (0.00-0.10); IMMATURE GRAN PERCENT AUTO 1 % (0-1); LYMPHOCYTES ABSOLUTE AUTO 1.92 K/mm3 (0.84-5.20); LYMPHOCYTES PERCENT AUTO 15 % (21-46); MONOCYTES ABSOLUTE AUTO 0.89 K/mm3 (0.16-1.47); MONOCYTES PERCENT AUTO 7 % (4-13); Mean Corpuscular HGB 30.5 pg (26.0-34.0); Mean Corpuscular HGB Conc 32.4 g/dL (31.5-36.5); Mean Corpuscular Volume 94 fL (80-100); Mean Platelet Volume 10.5 fL (9.1-12.4); NEUTROPHILS ABSOLUTE AUTO 9.67 K/mm3 (1.96-9.15); NEUTROPHILS PERCENT AUTO 76 % (41-73); Platelet Count 330 K/mm3 (150-400); RDW Coefficient Variation 15.3 % (11.7-14.2); RDW Standard Deviation 51.8 fL (35.1-46.3); Red Blood Cell Count 2.62 M/mm3 (3.80-5.20); White Blood Cell Count 12.72 K/mm3 (4.00-11.30)
[2022-06-01 14:58] LABS: International Normalized Ratio 1.11; Prothrombin Time Results 11.6 Sec (9.7-11.5)
[2022-06-01 15:07] LABS: Albumin, Blood 2.2 g/dL (3.4-5.0); Albumin/Globulin Ratio 0.5 (0.8-1.8); Bilirubin, Total 0.8 mg/dL (0.1-1.0); Bun/Creatinine Ratio 7.7 (12.0-20.0); Calcium, Blood 8.2 mg/dL (8.5-10.1); Creatinine, Blood 3.79 mg/dL (0.40-1.00); Globulin, Blood 4.2 g/dL (2.2-4.0); Magnesium, Blood 1.8 mg/dL (1.6-2.4); Potassium, Blood 3.6 mmol/L (3.5-5.5); Total Protein, Blood 6.4 g/dL (6.4-8.2)
== END 2022-06-01 16:33 | disposition home or self-care (01) ==
LOC: ER 10:40
PROVIDERS: Student in an Organized Health Care Education/Training Program
DX: R10.11 Right upper quadrant pain (principal); I12.0 Hypertensive chronic kidney disease with stage 5 chronic kidney disease or end stage renal disease; N18.6 End stage renal disease; Z99.2 Dependence on renal dialysis; G47.33 Obstructive sleep apnea (adult) (pediatric); E78.5 Hyperlipidemia, unspecified; Z87.891 Personal history of nicotine dependence; Z98.890 Other specified postprocedural states; Z88.6 Allergy status to analgesic agent; Z88.1 Allergy status to other antibiotic agents; Z88.4 Allergy status to anesthetic agent; Z91.048 Other nonmedicinal substance allergy status; Z79.899 Other long term (current) drug therapy
CPT/HCPCS: 0241U; 74174; 80053; 83690; 83735; 85025; 85610; 85730; 86850; 86900; 86901; 93005; 93010; J2405; J3010; Q9967

== ENCOUNTER 2022-06-08 01:21 | Day surgery (SDC) | payer MEDICARE, OTHER ==
[~2022-06-08 01:21] MED LIST changes: +Amoxicillin500 MG PO; +METO25ER PO; +ONDA4 PO; +OXYC5 PO; +SENNA LAXATIVE8.6 MG PO; +TEMA30 PO
== END 2022-06-08 11:45 | disposition home or self-care (01) ==
LOC: ATC 01:21
DX: I12.0 Hypertensive chronic kidney disease with stage 5 chronic kidney disease or end stage renal disease (principal); N18.6 End stage renal disease; D63.1 Anemia in chronic kidney disease
CPT/HCPCS: 86850; 86900; 86901; 86923; J7040; P9016

== ENCOUNTER 2022-06-16 11:38 | Inpatient (IN) | payer MEDICARE, OTHER ==
[~2022-06-16] VITALS: Ht 167.6 cm; Wt 84.8 kg
[2022-06-16 12:28] LABS: BASOPHILS ABSOLUTE AUTO 0.06 K/mm3 (0.00-0.23); BASOPHILS PERCENT AUTO 1 % (0-2); EOSINOPHILS ABSOLUTE AUTO 0.09 K/mm3 (0.00-0.68); EOSINOPHILS PERCENT AUTO 1 % (0-6); Hematocrit 33.1 % (33.0-51.0); Hemoglobin 10.3 g/dL (11.5-16.0); IMMATURE GRAN ABSOLUTE AUTO 0.05 K/mm3 (0.00-0.10); IMMATURE GRAN PERCENT AUTO 1 % (0-1); LYMPHOCYTES ABSOLUTE AUTO 1.42 K/mm3 (0.84-5.20); LYMPHOCYTES PERCENT AUTO 18 % (21-46); MONOCYTES ABSOLUTE AUTO 0.55 K/mm3 (0.16-1.47); MONOCYTES PERCENT AUTO 7 % (4-13); Mean Corpuscular HGB 29.5 pg (26.0-34.0); Mean Corpuscular HGB Conc 31.1 g/dL (31.5-36.5); Mean Corpuscular Volume 95 fL (80-100); Mean Platelet Volume 10.9 fL (9.1-12.4); NEUTROPHILS ABSOLUTE AUTO 5.69 K/mm3 (1.96-9.15); NEUTROPHILS PERCENT AUTO 72 % (41-73); Platelet Count 381 K/mm3 (150-400); RDW Coefficient Variation 14.6 % (11.7-14.2); RDW Standard Deviation 49.7 fL (35.1-46.3); Red Blood Cell Count 3.49 M/mm3 (3.80-5.20); White Blood Cell Count 7.86 K/mm3 (4.00-11.30)
[2022-06-16 12:47] LABS: Albumin, Blood 2.2 g/dL (3.4-5.0); Albumin/Globulin Ratio 0.4 (0.8-1.8); Bilirubin, Total 1.8 mg/dL (0.1-1.0); Bun/Creatinine Ratio 8.6 (12.0-20.0); Calcium, Blood 9.9 mg/dL (8.5-10.1); Creatinine, Blood 3.49 mg/dL (0.40-1.00); Globulin, Blood 5.3 g/dL (2.2-4.0); Potassium, Blood 3.7 mmol/L (3.5-5.5); Total Protein, Blood 7.5 g/dL (6.4-8.2)
[2022-06-16 13:17] LABS: Source, Urine Clean Catch
[2022-06-16 13:36] LABS: Appearance, Urine Bloody (Clear); Bilirubin, Urine Neg (Neg); Blood, Urine 5+ (Neg); Color, Urine Red (P-Yellow); Glucose Qualitative, Urine Neg (Neg); Ketones, Urine 1+ (Neg); Leukocyte Esterase, Urine Neg (Neg); Nitrite, Urine Neg (Neg); Protein, Urine 4+ (Neg); Specific Gravity, Urine 1.015 (1.003-1.022); Urobilinogen, Urine NORM (Normal)
[2022-06-16 13:48] LABS: Hyaline Casts 0-2 /lpf (0-2); RBC Cast 0-2 /lpf (0); Red Blood Cells, Urine TNTC /hpf (0-2)
[2022-06-16 13:50] LABS: Bacteria Mod /hpf; Squamous Epithelial Cells Mod /hpf (Few); White Blood Cells, Urine 25-50 /hpf (0-5)
[2022-06-17 05:18] LABS: Hematocrit 25.7 % (33.0-51.0); Hemoglobin 8.4 g/dL (11.5-16.0); Mean Corpuscular HGB 30.1 pg (26.0-34.0); Mean Corpuscular HGB Conc 32.7 g/dL (31.5-36.5); Mean Corpuscular Volume 92 fL (80-100); Mean Platelet Volume 10.5 fL (9.1-12.4); Platelet Count 370 K/mm3 (150-400); RDW Coefficient Variation 14.3 % (11.7-14.2); Red Blood Cell Count 2.79 M/mm3 (3.80-5.20)
[2022-06-17 05:25] LABS: Albumin, Blood 1.8 g/dL (3.4-5.0); Anion Gap 9 mmol/L (6-16); Blood Urea Nitrogen 33 mg/dL (8-24); CO2, Blood 30 mmol/L (21-32); Calcium, Blood 9.3 mg/dL (8.5-10.1); Chloride, Blood 92 mmol/L (98-108); Creatinine, Blood 3.67 mg/dL (0.40-1.00); Glomerular Filtration Rate 12 (60-); Glucose, Blood 71 mg/dL (70-99); Magnesium, Blood 1.3 mg/dL (1.6-2.4); Phosphorus, Blood 3.5 mg/dL (2.5-4.9); Potassium, Blood 3.3 mmol/L (3.5-5.5); Sodium, Blood 131 mmol/L (136-145)
--- NOTE | 2022-06-17 07:29 | NUR ---
COMPRESSOR STATION CHIEF ENGINEER SUMMARY A&Ox4. PLEASANT AND COOPERATIVE WITH CARE. VSS. C/O PELVIC PAIN THAT RADIATES TO LOW BACK. PRN OXYCODONE AND APAP ADMINISTERED x1. IV ABx ADMINISTERED. COMPLIANT WITH CPAP UNTIL 0200, THEN TOOK OFF AND CONTINUED USE OF O2 VIA NC @ 2LPM. ANTICIPATE DIALYSIS TODAY. IV Mg AND K+ ORDERED BUT NOT RECEIVED FROM PHARMACY YET. POSEY DRAINING TURBID, BURGUNDY URINE TO GRAVITY. REPORT TO ONCOMING RN.
--- NOTE | 2022-06-17 11:07 | NUR ---
PATIENT NOT IN DISTRESS, TO DIALYSIS AT 0900, MEDICATED FOR NAUSEA. VERY WEAK, USES CALL LIGHT, MAKES NEEDS KNOWN, STILL IN DIALYSIS NOW
--- NOTE | 2022-06-17 13:03 | NUR ---
PATIENT BACK FROM DIALYSIS, TO HAVE A PG PLACED, CALL LIGHT WITH IN REACH, PATIENT DENIED NV, WCTM
--- NOTE | 2022-06-17 15:58 | NUR ---
PATIENT TRANSFERRED FROM BED TO CHAIR WITH EASE, 1-2 PERSON FWW, DAUGHTER AT BEDSIDE HELPFUL WITH CARE
[2022-06-17 16:04] LABS: Hematocrit 27.3 % (33.0-51.0); Hemoglobin 8.9 g/dL (11.5-16.0)
--- NOTE | 2022-06-17 18:11 | NUR ---
MAKES NEEDS KNOWN, ALERT AND ORIENTED TO ALL, DAUGHTER HELPFUL WITH CARE. MULTIPLE EDUCATIONS ON MEDICATIONS AND BP MEDICATIONS. DIALYSIS TODAY, TREATED FOR NV IN DIALYSIS. POSEY TO GRAVITY [address] FOR POSSIBLE CBI, DARK RED, 200 OUT TODAY. OOB IN CHAIR EATING DINNER. PG TO WOODROW, FISTULA +BRUIT ON LEFT FOREARM. MULTIPLE NEEDS AND VERY PARTICULAR WITH CARE NEEDS, CALL LIGHT WITH IN REACH, WCTM
[2022-06-18 05:21] LABS: Hematocrit 26.5 % (33.0-51.0); Hemoglobin 8.3 g/dL (11.5-16.0)
[2022-06-18 05:45] LABS: Albumin, Blood 1.8 g/dL (3.4-5.0); Anion Gap 6 mmol/L (6-16); Blood Urea Nitrogen 24 mg/dL (8-24); Bun/Creatinine Ratio 7.4 (12.0-20.0); CO2, Blood 33 mmol/L (21-32); Calcium, Blood 9.1 mg/dL (8.5-10.1); Chloride, Blood 95 mmol/L (98-108); Creatinine, Blood 3.24 mg/dL (0.40-1.00); Glomerular Filtration Rate 14 (60-); Glucose, Blood 92 mg/dL (70-99); Magnesium, Blood 2.1 mg/dL (1.6-2.4); Phosphorus, Blood 2.8 mg/dL (2.5-4.9); Potassium, Blood 3.2 mmol/L (3.5-5.5); Sodium, Blood 134 mmol/L (136-145)
--- NOTE | 2022-06-18 06:41 | NUR ---
ZUMBA INSTRUCTOR SUMMARY A&Ox4. PLEASANT AND COOPERATIVE WITH CARE. VSS. ACCEPTED ALL MEDS LAST NIGHT. C/O DISCOMFORT R/T CATHETER AND KIDNEY PAIN MOMENTARILY RELIEVED WITH APAP. SOME INTERMITTENT NAUSEA RELIEVED WITH IV ZOFRAN. C/O ITCHING THIS MORNING SHE STATES IS LIKELY RELATED TO HER DIALYSIS Tx. DR SHRESTHA TO PT BEDSIDE TODAY AND GAVE VERBAL ORDER FOR BENADRYL 25MG PO x1. 3-WAY POSEY PATENT AND DRAINING BURGUNDY, TURBID URINE TO GRAVITY. NO CLOTS AND IRRIGATION HAS NOT YET BEEN NECESSARY. POWERGLIDE FLUSHES AND DRAWS. LABS DRAWN THIS AM. NO ACUTE ISSUES. WILL REPORT TO ONCOMING RN.
--- NOTE | 2022-06-18 17:16 | NUR ---
SHIFT SUMMARY; CHRISTIANE NOTED TO HAVE 250ML OF EFRA BLOOD IN HER URINARY CATHETER BAG. FLUSHED CATHETER WITH 120ML OF STERILE WATER AND PATIENT TOLERATES WELL NO CLOTS NOTED. SHE COMPLAINS OF PAIN X 2 IN HER BACK TODAY AND IS MEDICATED WITH TYLENOL WITH SOME SUCCESS. THIS AFTERNOON DAUGHTER APPROACHES THIS RN AND ASKS THAT PATIENT RECEIVE OPIATES FOR HER PAIN. WILL NOTIFY MD OF HER REQUEST. VITAL SIGNS ARE WNL. PATIENT USES CALL LIGHT APPROPRIATELY AND IS ABLE TO MAKE HER WANTS AND NEEDS KNOWN. SHE COMPLAINS OF NAUSEA AND RECEIVES PHENERGAN X 1 FOR NAUSEA WITH GOOD RESULTS. WILL REMAINS AVAILABLE FOR ANY WANTS OR NEEDS THAT COME UP PRIOR TO SHIFT CHANGE AND REPORT TO NOC SHIFT RN.
--- NOTE | 2022-06-19 05:02 | NUR ---
SHIFT SUMMARY PT REPORTS MINIMAL PAIN 10/09, DIDN'T REQUIRE PAIN MEDICATION T/O SHIFT. VSS. PT AOX4. USE CALL LIGHT APPROPRIATELY. MAKE NEEDS KNOWN. NEW IV ON R FOREARM PLACED. POWERGLIDE VERY POSITIONAL WITH FLUSHING. PT TOLERATING PO INTAKE. DENIES NAUSEA AND VOMITING. PT ALSO DENIES CHEST PAIN AND SOB. HX BRANDON, CPAP AT NIGHT. PT'SATS WNL. POSEY DRAINING, FLUSHED CATHETER WITH 120ML STERIL WATER. PT TOLERATES IT WELL. NO CLOTS NOTED. URINE OUTPUT OF 300 MLS. DARK RED/MAROON IN COLOR. CALL LIGHT WITHIN REACH. WILL CONTINUE TO MONITOR ANS WILL PROVIDE REPORT TO ONCOMING NURSE.
[2022-06-19 05:39] LABS: Hematocrit 27.3 % (33.0-51.0); Hemoglobin 8.6 g/dL (11.5-16.0); Mean Corpuscular HGB 29.6 pg (26.0-34.0); Mean Corpuscular HGB Conc 31.5 g/dL (31.5-36.5); Mean Corpuscular Volume 94 fL (80-100); Mean Platelet Volume 10.9 fL (9.1-12.4); Platelet Count 398 K/mm3 (150-400); RDW Coefficient Variation 14.4 % (11.7-14.2); RDW Standard Deviation 49.4 fL (35.1-46.3); Red Blood Cell Count 2.91 M/mm3 (3.80-5.20); White Blood Cell Count 7.25 K/mm3 (4.00-11.30)
[2022-06-19 06:05] LABS: Albumin, Blood 1.9 g/dL (3.4-5.0); Anion Gap 5 mmol/L (6-16); Blood Urea Nitrogen 31 mg/dL (8-24); Bun/Creatinine Ratio 7.5 (12.0-20.0); CO2, Blood 32 mmol/L (21-32); Calcium, Blood 9.9 mg/dL (8.5-10.1); Chloride, Blood 96 mmol/L (98-108); Creatinine, Blood 4.16 mg/dL (0.40-1.00); Glomerular Filtration Rate 11 (60-); Glucose, Blood 77 mg/dL (70-99); Magnesium, Blood 1.9 mg/dL (1.6-2.4); Phosphorus, Blood 3.1 mg/dL (2.5-4.9); Potassium, Blood 3.1 mmol/L (3.5-5.5); Sodium, Blood 133 mmol/L (136-145)
--- NOTE | 2022-06-19 17:17 | NUR ---
SHIFT SUMMARY; PATIENT RECEIVED HEMODIALYSIS TODAY. TOLERATED WELL. STILL COMPLAINS OF NAUSEA WHEN SHE SMELLS FOOD OR TRIES TO EAT. PATIENT COMPLAINS OF PAIN THIS AM AND WAS MEDICATED X 1 WITH 5MG OXYCODONE. BLOOD PRESSURE IS ELEVATED AT 167/86 TONIGHT AND IS NORMAL FOR THIS PATIENT HER PULSE IS 68. PATIENT DENIES ANY CP OR PRESSURE. SHE IS AO X 4 TODAY. HAS PLEASANT AFFECT AND IS COOPERATIVE WITH CARE. HER LUNGS ARE CLEAR BUT DIM THROUGHOUT. SHE DOES COUGH OCCASIONALLY TO CLEAR HER THROAT. WILL CONTINUE TO MONITOR THIS PATIENT CLOSELY FOR ANY WANTS OR NEEDS THAT COME UP PRIOR TO REPORT AND HAND OFF AT SHIFT CHANGE.
--- NOTE | 2022-06-20 04:07 | NUR ---
COST CONTROL ANALYST SUMMARY VSS. PT ALERT AND ORIENTED X 4. VOICED ABD AND FLANK PAIN AT S, RECEIVED ANALGESIC - SEE MAR FOR DETAILS. POSEY DRAINING, HEMATURIA NOTED. IVF INFUSING AT KVO, ANTIBIOTICS ORDERED. HAS BEEN RESTING QUIETLY WITH FEW INTERRUPTIONS. POSEY OUTPUT 150 CC AT THIS TIME. WILL CONTINUE TO MONITOR OUTPUT AND ASSESS FOR NEED TO FLUSH POSEY. CALL LIGHT IN REACH.
[2022-06-20 05:28] LABS: Hematocrit 26.3 % (33.0-51.0); Hemoglobin 8.4 g/dL (11.5-16.0)
[2022-06-20 05:55] LABS: Albumin, Blood 1.9 g/dL (3.4-5.0); Anion Gap 6 mmol/L (6-16); Blood Urea Nitrogen 21 mg/dL (8-24); Bun/Creatinine Ratio 6.1 (12.0-20.0); CO2, Blood 31 mmol/L (21-32); Calcium, Blood 9.3 mg/dL (8.5-10.1); Chloride, Blood 96 mmol/L (98-108); Creatinine, Blood 3.47 mg/dL (0.40-1.00); Glomerular Filtration Rate 13 (60-); Glucose, Blood 87 mg/dL (70-99); Magnesium, Blood 1.8 mg/dL (1.6-2.4); Phosphorus, Blood 2.8 mg/dL (2.5-4.9); Potassium, Blood 3.5 mmol/L (3.5-5.5); Sodium, Blood 133 mmol/L (136-145)
--- NOTE | 2022-06-20 06:44 | NUR ---
POSEY FLUSHED WITH STERILE WATER, ASEPTIC TECHNIQUE. DRAINING NOTED HEMATURIA. CALL LIGHT IN REACH
[2022-06-20] MEDS ORDERED: VISBIOME 112.51 EACH PO (12:31)
[2022-06-20] MEDS ORDERED: AMOX500 PO (12:32)
--- NOTE | 2022-06-20 14:53 | NUR ---
PT DISCHARGED WITH DC INSTRUCTIONS GIVEN TO DAUGHTER AND PT, DC APPROX 1430 VIA WHEELCHAIR TX OUT TO PRIVATE CAR. POSEY LEFT IN PLACE PER DR MOORE AND HENRIETTA RECOMMENDATION UNTIL F/U WITH [facility]. SENT HOME WITH IRRIGATION SYRINGE AND IRRIGANT WELL A DEMONSTREATION. POSEY CURRENTLY PATENT AND DRAINING BURGENDY URINE WITH NO CLOTS, PATENT. PLAN TO MAINTENANCE SERVICE DISPATCHER RX AT PHARMACY TODAY AND CONT ORAL ABX. ALL BELONGINGS SENT HOME INCLUDING CPAP MACHINE.
== END 2022-06-20 14:45 | disposition home or self-care (01) | DRG 919 ==
LOC: ER 11:38 → MEDS 11:39
PROVIDERS: Emergency Medicine; Internal Medicine; Internal Medicine Nephrology; Nurse Practitioner Acute Care; ADMIT Internal Medicine
PROC: 5A1D70Z Performance of Urinary Filtration, Intermittent, Less than 6 Hours Per Day (ICD-10-PCS; principal; 2022-06-18)
DX: N99.840 Postprocedural hematoma of a genitourinary system organ or structure following a genitourinary system procedure (principal); N18.6 End stage renal disease; E87.1 Hypo-osmolality and hyponatremia; I50.32 Chronic diastolic (congestive) heart failure; I13.2 Hypertensive heart and chronic kidney disease with heart failure and with stage 5 chronic kidney disease, or end stage renal disease; F11.20 Opioid dependence, uncomplicated; N39.0 Urinary tract infection, site not specified; R31.0 Gross hematuria; B95.2 Enterococcus as the cause of diseases classified elsewhere; D63.1 Anemia in chronic kidney disease; I73.9 Peripheral vascular disease, unspecified; G47.33 Obstructive sleep apnea (adult) (pediatric); M54.9 Dorsalgia, unspecified; G89.29 Other chronic pain; I48.91 Unspecified atrial fibrillation; M10.9 Gout, unspecified; G25.81 Restless legs syndrome; E87.70 Fluid overload, unspecified; J44.9 Chronic obstructive pulmonary disease, unspecified; R73.03 Prediabetes; Z96.641 Presence of right artificial hip joint; E66.01 Morbid (severe) obesity due to excess calories; F41.8 Other specified anxiety disorders; E78.00 Pure hypercholesterolemia, unspecified; I27.20 Pulmonary hypertension, unspecified; E87.6 Hypokalemia; Z99.81 Dependence on supplemental oxygen; Z98.890 Other specified postprocedural states; Z90.710 Acquired absence of both cervix and uterus; Z90.49 Acquired absence of other specified parts of digestive tract; Z95.820 Peripheral vascular angioplasty status with implants and grafts; Z87.891 Personal history of nicotine dependence; Z79.899 Other long term (current) drug therapy; Z88.8 Allergy status to other drugs, medicaments and biological substances; Z88.1 Allergy status to other antibiotic agents; Z99.2 Dependence on renal dialysis
CPT/HCPCS: 36415; 51702; 74176; 74177; 80053; 80069; 81001; 83735; 85014; 85018; 85025; 85027; 87077; 87086; 87186; 93005; 93010; 94660; 94760; 94762; 96365-59; 96366; 96367; 96368; 96372; 96375-59; 96376; 99285-25; A9270; C1751; G0378; J0295; J0881; J2405; J3010; J3475; J3480; J7050; P9612; Q9967